=== PATIENT | male | born 1955 | race African-American/Black ===

== ENCOUNTER 2016-09-07 12:54 | Emergency (ER) | payer SELFPAY ==
[~2016-09-07] VITALS: Ht 188 cm; Wt 88.5 kg
[2016-09-07 13:25] LABS: BASOPHILS # (AUTO) 0.1 /CMM (0.0-0.2); BASOPHILS % (AUTO) 2.2 % (0.0-2.0); DIFF TOTAL % 100 %; EOSINOPHILS # (AUTO) 0.1 /CMM (0.0-0.7); EOSINOPHILS % (AUTO) 3.1 % (0.0-6.0); HEMATOCRIT 39 % (39-51); HEMOGLOBIN 12.5 g/dL (13.5-17.5); LYMPHOCYTES # (AUTO) 2.1 /CMM (0.8-4.8); LYMPHOCYTES % (AUTO) 43.2 % (20.0-44.0); MEAN CORPUSCULAR HEMOGLOBIN 30 PG (26.0-33.0); MEAN CORPUSCULAR HGB CONC 32 g/dl (31.0-36.0); MEAN CORPUSCULAR VOLUME 94 fL (80-96); MONOCYTES # (AUTO) 0.4 /CMM (0.1-1.30); MONOCYTES % (AUTO) 9.1 % (2.0-12.0); NEUTROPHILS % (AUTO) 42.4 % (43.0-81.0); PLATELET COUNT (AUTO) 239 /CMM (150-450); RED BLOOD CELL COUNT(AUTO) 4.12 MIL/uL (4.5-6.0); WHITE BLOOD COUNT (AUTO) 4.7 K/uL (4.3-11.0)
[2016-09-07 13:41] LABS: INR 1.07 (0.87-1.13); PROTHROMBIN TIME 11.2 SECS (9.5-12.7)
[2016-09-07 13:45] LABS: TROPONIN I < 0.017 ng/mL (0.00-0.056)
[2016-09-07 15:01] LABS: ANION GAP 10 (5-14); CALCIUM, SERUM 8.5 mg/dL (8.5-10.1); CARBON DIOXIDE 32 mmol/L (21-32); CHLORIDE 104 mmol/L (98-107); GFR 92 mL/min (>60); GLUCOSE 101 mg/dL (74-106); SODIUM SERUM 141 mmol/L (136-145); UREA NITROGEN, BLOOD 19 mg/dL (7-18)
[2016-09-07 15:06] LABS: POTASSIUM 4.9 mmol/L (3.5-5.1)
[2016-09-07 16:30] VITALS: BP 159/79
== END 2016-09-07 16:31 | disposition other institution (70) ==
LOC: ER 12:56
DX: R55 Syncope and collapse (principal); R51 Headache; Z86.73 Personal history of transient ischemic attack (TIA), and cerebral infarction without residual deficits
CPT/HCPCS: 36415; 70450-TC; 71010-TC; 80048-TC; 84484-TC; 85025-TC; 85730-TC; A4606; Z7610